=== PATIENT | female | born 1965 | race African-American/Black ===

== ENCOUNTER 2021-01-03 08:42 | Outpatient (REF) | payer OTHER, SELFPAY | END 2021-01-03 08:43 | disposition home or self-care (01) | LOC: HO.SCI 08:42 | PROVIDERS: Visit Provider Psychiatry & Neurology Neurology | DX: Z13.89 Encounter for screening for other disorder (principal) ==

== ENCOUNTER 2021-01-09 10:31 | Outpatient (REF) | payer OTHER, SELFPAY ==
--- NOTE | ~2021-01-09 | MR_ITS ---
EXAMINATION: MR BRAIN WITHOUT AND WITH CONTRAST CLINICAL INFORMATION: Syncope. COMPARISON: None. TECHNIQUE: Multiplanar, multisequence imaging of the brain was performed before and after the intravenous administration of 10 mL of Gadavist. Limited study with motion artifacts. FINDINGS: No diffusion abnormalities are identified to suggest an acute infarct. The ventricles are normal in size. No mass effect or midline shift is seen. No brain parenchymal signal abnormality is noted. No extra-axial fluid collections are seen. The brainstem and cerebellum are normal. On postcontrast imaging, there is no abnormal parenchymal enhancement. At the high right frontal vertex, there is a small sessile homogeneously enhancing 5 x 6 mm extra-axial nodular lesion which may represent an incidental small meningioma. The gradient refocused acquisition is normal. The craniovertebral junction, marrow signal, and midline structures are normal. The major intracranial flow voids at the level of the [place] are preserved. The orbits and pituitary axis structures are normal. The dural venous sinus flow voids are maintained. The mastoid air cells are well aerated. There is mild mucosal thickening in the ethmoid sinuses. MR/MR head/brain wo/w con IMPRESSION: Relatively normal MRI of the brain, slightly limited for evaluation due to motion artifacts. Small 6 mm incidental higher right frontal vertex enhancing extra-axial nodular lesion which may represent a meningioma.
== END 2021-01-09 10:32 | disposition home or self-care (01) ==
LOC: HO.MRI 10:31
PROVIDERS: Visit Provider Psychiatry & Neurology Neurology
DX: R55 Syncope and collapse (principal)
CPT/HCPCS: 70553; A9585